=== PATIENT | female | born 1995 | race Caucasian/White ===

== ENCOUNTER 2018-07-29 07:28 | Day surgery (SDC) | payer BC ==
[~2018-07-29 07:28] MED LIST: DEXAMETHASONE SOD PHOS INJ 10 MG/1 ML VIAL ONE; FENTANYL CITRATE INJ/PF 100 MCG/2 ML AMPUL ONE; HYDROMORPHONE HCL INJ/PF 2 MG/ML AMPULE ONE; MIDAZOLAM 2 MG/2 ML INJ ONE; ONDANSETRON HCL INJ/PF 4 MG/2 ML SDV ONE; PROPOFOL INJ 200 MG/20 ML VIAL IV ONE; ROCURONIUM BROMIDE INJ 50 MG/5 ML VIAL IV ONE; SUCCINYLCHOLINE CHLORIDE INJ 200 MG/10 ML VIAL ONE
[2018-07-29] MEDS ORDERED: BUPIVACAINE HCL 0.5%/EPI 1:200000 INJ 1.8 ML CARTRIDGE ONE (08:40)
[2018-07-29] MEDS ORDERED: FENTANYL CITRATE INJ/PF 100 MCG/2 ML AMPUL ONE (10:23)
--- NOTE | 2018-07-31 12:35 | [facility] OPERATIVE REPORT E ---
[facility] NAME: MARCO ANTONIO MALIN AGE: 23Y DATE OF SURGERY: 07/29/2018 ROOM: PREOPERATIVE DIAGNOSIS: 1. ACUTE RECURRENT TONSILLITIS. 2. CHRONIC TONSILLITIS. 3. ADENOTONSILLAR HYPERTROPHY. POSTOPERATIVE DIAGNOSIS: 1. ACUTE RECURRENT TONSILLITIS. 2. CHRONIC TONSILLITIS. 3. ADENOTONSILLAR HYPERTROPHY. OPERATION: 1. Bilateral tonsillectomy, patient age greater than 12. 2. Adenoidectomy. SURGEON: AMADEO CHRISTIAN D.O. ANESTHESIA: General endotracheal tube. ANESTHESIA STAFF: Amadeo De Leon CRNA ESTIMATED BLOOD LOSS: 10 mL FLUIDS: 550 mL COMPLICATIONS: None. DRAINS: None. SPONGE COUNT: Verified. MATERIALS FORWARDED SPECIMEN: Left and right tonsillar tissue FINDINGS: 1. The tonsils were noted to be 2+ in size, were cryptic in nature, and were with tonsillar debris present bilateral. 2. Adenoid hypertrophy was 2+ in size. 3. Soft palatal tissues were redundant in nature and the uvula was otherwise unremarkable in appearance. INDICATIONS: This is a 23-year-old white female patient who was seen and evaluated in the [place] [facility] office. The patient had been referred for, and she complained of, a history of acute recurrent tonsillitis episodes requiring antibiotic treatment occurring each year over the years. With these episodes, the patient experiences significant sore throat discomfort, poor p.o. intake, and will miss work/school at times due to these episodes. The patient also has a history of chronic tonsillitis with symptoms consistent with keratosis pharyngeus over the years. The patient is also with adenotonsillar hypertrophy symptoms, which was confirmed on clinic flexible endoscopy. After extensive discussion with the patient, recommendation and plan was made to proceed with tonsillectomy and adenoidectomy. PROCEDURE: The patient was taken to the main operating room and placed on the operating room table in the supine position. Appropriate monitors were placed. Using mask and IV access, general anesthesia was induced. The patient was next transorally intubated without difficulty. The patient was rotated 90 degrees and positioned for tonsil and adenoid surgery. The patient's lips, teeth, tongue and inside of the mouth were inspected and noted to be without defects. There was a mouth gag inserted. It was opened, and the patient was placed into suspension. There was a soft catheter placed through the patient's nose that was used to suspend the soft palate. Findings are as noted above. injection of local anesthetic with epinephrine to establish tonsillar block bilateral. At this point, the adenoid microdebrider system at a setting of 1500 rpm was used to debulk the adenoid tissue. With the use of adenoid pack and suction electrocautery, adequate hemostasis was achieved. At this point, the plasma J-hook device was used to dissect and remove tonsillar tissue on each side. This device was also used to provide adequate hemostasis. Saline irritation was performed and suctioned. There was adequate hemostasis noted. The soft catheter was next released and removed from the patient's nose. The mouth gag was removed from the patient's mouth without difficulty. There was no damage to the lips, teeth, tongue, gums, or inside of the mouth. The patient was then returned to the anesthesia staff and was allowed to emerge from general anesthesia. The patient was extubated in the main operating room and was then transported to the post-anesthesia recovery unit in stable condition. There were no complications. DICTATING PHYSICIAN: AMADEO CHRISTIAN D.O. [id number] PHY#: [id number] ID: [id number] JOB#: [id number] ACCT: [id number] cc:AMADEO CHRISTIAN D.O. >
== END 2018-07-29 11:00 | disposition home or self-care (01) ==
LOC: SC 07:28
PROVIDERS: ATTEND Otolaryngology
DX: J35.01 Chronic tonsillitis (principal); J35.8 Other chronic diseases of tonsils and adenoids; J03.91 Acute recurrent tonsillitis, unspecified; J30.9 Allergic rhinitis, unspecified; G43.109 Migraine with aura, not intractable, without status migrainosus; R42 Dizziness and giddiness; R09.81 Nasal congestion; R09.82 Postnasal drip; J34.89 Other specified disorders of nose and nasal sinuses
CPT/HCPCS: 36415; 86003 ×24; 82785; 88304 ×2; 42821; J2250; J3490 ×2; J3010; J1170; J0330; J2405; J2704; J1100; 170